=== PATIENT | male | born 1980 | race American Indian/Alaskan Native ===

== ENCOUNTER 2017-09-21 21:17 | Emergency (ER) | payer OTHER ==
[2017-09-21] MEDS ORDERED: D50W (25GM) Syringe IV ONE (21:47)
[2017-09-21] MEDS ORDERED: [UNRECOGNIZED DRUG - OTHER] IV ONE (21:52)
[2017-09-21 21:53] LABS: Urine Drugs of Abuse Note Disclamer
[2017-09-21 21:56] LABS: Basophils % (Auto) 0.5 % (0.0-1.8); Eosinophils % (Auto) 0.1 % (0.0-4.3); Hematocrit 42.7 % (35.5-45.6); Hemoglobin 14.4 gm/dl (11.8-15.2); Mean Corpuscular HGB Conc 34 % (32-34); Mean Corpuscular Hemoglobin 34 pg (28-32); Mean Corpuscular Volume 101 fl (84-94); Platelet Count 198 K/mm3 (140-440); Red Blood Count 4.23 M/mm3 (3.65-5.03); Red Cell Distribution Width 12.3 % (13.2-15.2); White Blood Count 16.3 K/mm3 (4.5-11.0)
[2017-09-21 22:01] LABS: Bacteria,Urine 1+ /HPF (Negative); Bilirubin,Urine NEG (Negative); Blood,Urine MOD (Negative); Ketones,Urine 20 mg/dL (Negative); Leukocyte Esterase,Urine NEG (Negative); Mucus,Urine FEW /HPF; Nitrite,Urine NEG (Negative); Urobilinogen,Urine < 2.0 mg/dL (<2.0)
[2017-09-21] MEDS ORDERED: ATIVAN IV ONE (22:05)
[2017-09-21] MEDS ORDERED: ATIVAN ONE (22:09)
[2017-09-21 22:18] LABS: Albumin 4.9 g/dL (3.9-5); Albumin/Globulin Ratio 1.5 %; BUN/Creatinine Ratio 17; Blood Urea Nitrogen 15 mg/dL (9-20); Calcium 8.8 mg/dL (8.4-10.2); Carbon Dioxide 20 mmol/L (22-30); Chloride 97.9 mmol/L (98-107); Glucose 59 mg/dL (75-100); Sodium 142 mmol/L (137-145); Total Protein 8.2 g/dL (6.3-8.2)
[2017-09-21 22:45] LABS: Anion Gap 29 mmol/L
[2017-09-21 22:47] LABS: Alanine Aminotransferase 38 units/L (7-56)
[2017-09-21 22:49] LABS: Potassium 4.5 mmol/L (3.6-5.0)
[2017-09-21 22:56] LABS: Alkaline Phosphatase 97 units/L (35-129)
[2017-09-21] MEDS ORDERED: D50W (25GM) Vial IV ONE (23:00)
[2017-09-22 02:53] VITALS: BP 142/106
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
== END 2017-09-22 06:57 | disposition home or self-care (01) ==
LOC: EDBD 21:17 → ED 21:17
DX: R41.82 Altered mental status, unspecified (principal); F12.10 Cannabis abuse, uncomplicated; F14.10 Cocaine abuse, uncomplicated; F13.10 Sedative, hypnotic or anxiolytic abuse, uncomplicated; J32.9 Chronic sinusitis, unspecified; Z79.899 Other long term (current) drug therapy
CPT/HCPCS: 36415; 70450; 80053; 80307; 81001; 82140; 82962; 83735; 84443; 85025; 93005; 93010; 96374; 96375; 99285; G0480; J2060; 80320

== ENCOUNTER 2017-10-09 15:04 | Emergency (ER) | payer OTHER ==
[2017-10-09 15:31] VITALS: BP 125/89
--- NOTE | 2017-10-09 16:18 | Emergency Department Report ---
Chief Complaint: Overdose Stated Complaint: OVERDOSE Time Seen by Provider: 10/09/17 16:17 - HPI History of Present Illness: Patient here report that he has been stressed out and report using cocaine approximately 1 g last night. He said he uses it about once a month. He said he was smoking marijuana also. Here with complaint nasal congestion and cold symptoms. Thinks this flushes B being enough. Patient unsteady gait and also complaining of sore throat it at a 10. Denies any shortness of breath or chest pain. Medical history of drug abuse. Denies suicidal or homicidal ideation. - ROS Review of Systems: All systems are negative unless stated in HPI above - Exam Vital Signs: Vital Signs 10/09/17 15:26 Temperature 98.7 F Pulse Rate 94 H Respiratory 18 Rate Blood Pressure 125/89 O2 Sat by Pulse 98 Oximetry Physical Exam: Gen.: This is a 37-year-old male well-nourished well-developed in no acute distress and nontoxic in appearance. CV: S1, S2. Regular rate rhythm negative murmur. Blood pressure is 125/89 and heart rate is 94 bpm, O2 sat 98% on room air. Nose: Congested with clear drainage. No maxillary or frontal sinus tenderness Mouth: Oral airways patent and no signs of peritonsillar abscess. Uvula is midline. Tongue is normal neurological GCS of 15, patient with slurred speech better than when he first arrived in triage area. He is more awake than when he initially arrived to triage area. Patient is walking and but staggering. He follows commands appropriately. MSE screening note: Focused history and physical exam performed. Due to findings the following was ordered: ED Medical Decision Making - Medical Decision Making MDM: Patient screened by provider in triage area. Appropriate protocol initiated and patient to be seen in main ED by ED Disposition for MSE Condition: Stable
[2017-10-09 16:35] LABS: Urine Drugs of Abuse Note Disclamer
[2017-10-09 17:01] LABS: Bilirubin,Urine NEG (Negative); Blood,Urine MOD (Negative); Ketones,Urine NEG (Negative); Leukocyte Esterase,Urine NEG (Negative); Mucus,Urine FEW /HPF; Nitrite,Urine NEG (Negative); Protein,Urine <15 mg/dL mg/dL (Negative); Urobilinogen,Urine < 2.0 mg/dL (<2.0)
[2017-10-09 17:11] LABS: Basophils % (Auto) 1.5 % (0.0-1.8); Eosinophils % (Auto) 1.9 % (0.0-4.3); Hematocrit 42.4 % (35.5-45.6); Hemoglobin 14.1 gm/dl (11.8-15.2); Mean Corpuscular HGB Conc 33 % (32-34); Mean Corpuscular Hemoglobin 34 pg (28-32); Mean Corpuscular Volume 101 fl (84-94); Platelet Count 243 K/mm3 (140-440); Red Cell Distribution Width 12.4 % (13.2-15.2); White Blood Count 6.5 K/mm3 (4.5-11.0)
[2017-10-09 17:17] LABS: Alanine Aminotransferase 19 units/L (7-56); Albumin 4.8 g/dL (3.9-5); Albumin/Globulin Ratio 1.5 %; Alkaline Phosphatase 100 units/L (35-129); Anion Gap 20 mmol/L; BUN/Creatinine Ratio 11; Blood Urea Nitrogen 9 mg/dL (9-20); Calcium 9.8 mg/dL (8.4-10.2); Carbon Dioxide 25 mmol/L (22-30); Chloride 97.5 mmol/L (98-107); Glucose 73 mg/dL (75-100); Sodium 138 mmol/L (137-145); Total Protein 7.9 g/dL (6.3-8.2)
== END 2017-10-09 23:00 | disposition left against medical advice (07) ==
LOC: ED 15:04
DX: F14.10 Cocaine abuse, uncomplicated (principal); F12.10 Cannabis abuse, uncomplicated; R05 Cough; Z53.21 Procedure and treatment not carried out due to patient leaving prior to being seen by health care provider
CPT/HCPCS: 36415; 80053; 80307; 81001; 85025

== ENCOUNTER 2018-05-21 15:03 | Emergency (ER) | payer SELFPAY ==
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
[2018-05-21] MEDS ORDERED: BOOSTRIX IM ONE (18:45)
[2018-05-21] MEDS ORDERED: MORPHINE IV ONE ×2 (18:45→19:28)
[2018-05-21] MEDS ORDERED: NACL 0.9% 1000 ML 1,000 ML IV ONE (18:45)
[2018-05-21] MEDS ORDERED: ZOFRAN IV ONE (18:45)
[2018-05-21] MEDS ORDERED: ANCEF/NS 1 GM/50 ML 1 GM/50 ML BAG IV ONE (19:10)
[2018-05-21 19:23] VITALS: BP 140/102
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
== END 2018-05-21 20:30 | disposition other institution (70) ==
LOC: ED 15:03
DX: S02.609A Fracture of mandible, unspecified, initial encounter for closed fracture (principal); R51 Headache; F17.200 Nicotine dependence, unspecified, uncomplicated; Y04.0XXA Assault by unarmed brawl or fight, initial encounter; Y93.89 Activity, other specified; Y92.410 Unspecified street and highway as the place of occurrence of the external cause; Y99.8 Other external cause status
CPT/HCPCS: 70450; 70486; 72125; 90471; 90715; 96365; 96375; 99285; J2270; J2405; J7030; J0690